=== PATIENT | female | born 1975 | race Caucasian/White ===

== ENCOUNTER → 2017-04-29 | Outpatient (CLI) | payer BC ==
--- NOTE | 2017-04-30 10:46 | ECHOF ---
Referral Reason:R07.1 chest pain, R06.00 Dyspnea MEASUREMENTS -------- HEIGHT: 162.6 cm WEIGHT: 70.3 kg BP: 114/61 RVIDd: 1.9 cm (< 3.3) IVSd: 0.9 cm (0.6 - 1.1) LVIDd: 3.8 cm (3.9 - 5.3) LVPWd: 0.8 cm (0.6 - 1.1) IVSs: 1.1 cm LVIDs: 2.8 cm LVPWs: 1.1 cm LAESV Index (A-L): 13.69 ml/m Ao Diam: 3.2 cm (2.0 - 3.7) AV Cusp: 1.7 cm (1.5 - 2.6) LA Diam: 2.4 cm (2.7 - 3.8) MV EXCURSION: 15.228 mm (> 18.000) MV EF SLOPE: 70 mm/s (70 - 150) EPSS: 0.4 cm MV E Robby: 1.10 m/s MV DecT: 184 ms MV A Robby: 0.74 m/s MV E/A Ratio: 1.49 RAP: 5.00 mmHg RVSP: 11.32 mmHg FINDINGS -------- Sinus rhythm. This was a technically adequate study. Overall left ventricular systolic function is normal with, an EF between 60 - 65 %. The right ventricle is normal in size and function. Normal LA size by volume 22+/-6 ml/m2. The right atrium is normal in size. The aortic valve is trileaflet, and appears structurally normal. No aortic stenosis or regurgitation. The mitral valve is normal. There is trace mitral regurgitation. Trace tricuspid regurgitation present. There is no evidence of pulmonary hypertension. The right ventricular systolic pressure, as measured by Doppler, is 11.32mmHg. The pulmonic valve is normal. The aortic root size is normal. Normal inferior vena cava with normal inspiratory collapse consistent with estimated right atrial pressure of 5 mmHg. The pericardium is normal. There is no pericardial effusion. CONCLUSIONS -------- 1. Sinus rhythm. 2. The aortic root size is normal. 3. There is no pericardial effusion. 4. This was a technically adequate study. 5. Overall left ventricular systolic function is normal with, an EF between 60 - 65 %. 6. Normal LA size by volume 22+/-6 ml/m2. 7. The aortic valve is trileaflet, and appears structurally normal. No aortic stenosis or regurgitation. 8. There is trace mitral regurgitation. 9. Trace tricuspid regurgitation present. 10. There is no evidence of pulmonary hypertension. 11. The right ventricular systolic pressure, as measured by Doppler, is 11.32mmHg. MARKETING OUTREACH COORDINATOR: Gerardo Wood RDCS
== END | disposition home or self-care (01) ==
LOC: CPPFTMAIN 12:09
PROVIDERS: ATTEND Family Medicine
DX: I08.1 Rheumatic disorders of both mitral and tricuspid valves (principal)
CPT/HCPCS: 93306; 94060; 94726; 94729

== ENCOUNTER → 2018-09-19 | Outpatient (CLI) | payer OTHER ==
--- NOTE | 2018-09-22 11:11 | MM ---
Reason for exam: screening (asymptomatic). History: Took hormonal contraceptives for 10 years. MG 3D Screening Mammo W/Cad Bilateral CC and MLO view(s) were taken. The breast tissue is heterogeneously dense. This may lower the sensitivity of mammography. There is a 7 mm oval density in the right breast lower outer anterior middle position, finding is new when compared to the 2013 study. Asymmetric decreased size right to left breast unchanged from outside 2013 mammogram. ASSESSMENT: Incomplete: need additional imaging evaluation, BI-RAD 0 RECOMMENDATION: Ultrasound of the right breast.
== END | disposition home or self-care (01) ==
LOC: RADMAMWWP 15:06
PROVIDERS: ATTEND Family Medicine
DX: Z12.31 Encounter for screening mammogram for malignant neoplasm of breast (principal)
CPT/HCPCS: 77063; 77067

== ENCOUNTER → 2018-10-03 | Outpatient (CLI) | payer OTHER ==
--- NOTE | 2018-10-04 15:41 | USB ---
Reason for exam: additional evaluation requested from abnormal screening. History: Took hormonal contraceptives for 10 years. Physical Findings: Nurse Summary: palpable right breast at 2 o'clock. US Breast Workup Limited RT Right limited breast ultrasound including focal area of concern, retroareolar and axilla demonstrates a 8 x 5 x 1.3 mm irregular hypoechoic lesion at 4 o'clock a biopsy is recommended, a 4 x 3 x 6 mm oval hypoechoic lesion at 8 o'clock possible mammographic correlated and a 6 month follow up is recommended, and at the 2 o'clock positions is a 9 x 5 x 8 mm hypoechoic lesion that a biopsy is also recommended. These results were verbally communicated with the patient and result sheet given to the patient on 10/03/18. ASSESSMENT: Suspicious, BI-RAD 4 RECOMMENDATION: Ultrasound core biopsy of the right breast ([address] sites). [address] Campbell with mammographic findings and has scheduled an appointment for the patient for 10/25/18 at 2:[address] Campbell for the results of the biopsy. The ultrasound core biopsy is scheduled for 10/19/18 at 12:20 pm. PRELIMINARY REPORT CALLED AND FAXED TO DR. Campbell ON 10/03/18. [facility]
== END ==
LOC: RADUSWWP 08:08
PROVIDERS: ATTEND Family Medicine
DX: R92.8 Other abnormal and inconclusive findings on diagnostic imaging of breast (principal)

== ENCOUNTER → 2018-10-19 | Day surgery (SDC) | payer OTHER ==
[2018-10-19 11:37] VITALS: RESP 16; BMI 27.4
--- NOTE | 2018-10-19 13:07 | USB ---
EXAMINATION TYPE: US biopsy breast VAD RT, US biopsy breast add'l VAD RT, MG diagnostic mammo RT wo CAD DATE OF EXAM: 10/19/2018 CLINICAL HISTORY: R92.8 ABN mamogram. TECHNIQUE: Ultrasound guided core biopsy of right breast 2:00 and 4:00 position. COMPARISON: NONE FINDINGS: The procedure of ultrasound guided core biopsy was explained to the patient. Benefits, alternatives, and risks were discussed. An informed consent was then obtained. The patient was placed in supine positioning for imaging and for the procedure. The overlying skin was prepped and draped in usual sterile fashion. Lidocaine buffered with bicarbonate was used as anesthetic into the skin and subcutaneous tissue up to areas of concern in the right breast 2:00 and 4:00 position. Under ultrasound guidance, a 12-gauge vacuum assisted biopsy gun device was used to obtain 3 core samples from the 2:00 position and 4 core samples from the 4:00 position.. Following this, a biopsy clips were deployed in lesions . Postprocedural mammograms demonstrate appropriate placement. The patient tolerated the procedure well without any immediate complication. The patient was kept in the radiology department for short stay after the procedure and then discharged home in stable condition. IMPRESSION: Successful, uncomplicated ultrasound guided core biopsy of area of concern in the right breast 2:00 and 4:00 position. , full pathology results to follow. Pathology Results: Benign A. RIGHT BREAST, TWO O'CLOCK, ULTRASOUND GUIDED CORE BIOPSY: Fibroadenoma. B. RIGHT BREAST, FOUR O'CLOCK, ULTRASOUND GUIDED CORE BIOPSY: Fibrocystic changes including cysts, fibrosis and columnar cell change. Recommendation Follow up mammogram and ultrasound of the right breast in 6 months. (attention 5 o'clock zone A) [place]
[2018-10-19 13:24] VITALS: BP 104/71; PULSE 79; TEMP 98.1
== END ==
LOC: RADUSWWP 11:21
PROVIDERS: ATTEND Family Medicine
DX: D24.1 Benign neoplasm of right breast (principal); N60.31 Fibrosclerosis of right breast
CPT/HCPCS: 88305; 77065; 19083; 19084; A4648; J2001

== ENCOUNTER → 2019-04-19 | Outpatient (CLI) | payer OTHER ==
--- NOTE | 2019-04-19 13:17 | MM ---
Reason for exam: follow-up at short interval from prior study. Last mammogram was performed 6 months ago. History: Benign US biopsy breast VAD RT of the right breast, October 19, 2018. Benign US biopsy breast add'l VAD RT of the right breast, October 19, 2018. Took hormonal contraceptives for 10 years. Physical Findings: Nurse did not find any significant physical abnormalities on exam. MG 3D Diag Mammo W/Cad RT CC and MLO view(s) were taken of the right breast. Prior study comparison: October 19, 2018, right breast MG diagnostic mammo RT wo CAD. September 19, 2018, bilateral MG 3d screening mammo w/cad. The breast tissue is extremely dense which could obscure a lesion on mammography. No suspicious abnormality. Two right biopsy markers are noted. These results were verbally communicated with the patient and result sheet given to the patient on 04/19/19. ASSESSMENT: Incomplete: need additional imaging evaluation, BI-RAD 0 RECOMMENDATION: Ultrasound of the right breast. (as recommended on rad/path correlation after biopsy)
--- NOTE | 2019-04-19 13:19 | USB ---
Reason for exam: follow-up at short interval from prior study. History: Benign US biopsy breast VAD RT of the right breast, October 19, 2018. Benign US biopsy breast add'l VAD RT of the right breast, October 19, 2018. Took hormonal contraceptives for 10 years. US Breast Limited RT Right limited breast ultrasound including focal area of concern, retroareolar and axilla demonstrates a 7 x 3 x 7mm oval, mixed, hypoechoic, new lesion at 9 o'clock and a 5 x 3 x 5mm oval, mixed, hypoechoic lesion at 8 o'clock previously labeled 8 o'clock, no interval growth. These both questionably have some cystic characteristics and may be complicated cysts. These results were verbally communicated with the patient and result sheet given to the patient on 04/19/19. ASSESSMENT: Probably benign, BI-RAD 3 RECOMMENDATION: Follow-up diagnostic mammogram of both breasts in 6 months. Ultrasound of the right breast in 6 months. (inferior breast)
== END ==
LOC: RADMAMWWP 11:00
PROVIDERS: ATTEND Family Medicine
DX: N63.0 Unspecified lump in unspecified breast (principal)
CPT/HCPCS: 77061; 77065

== ENCOUNTER → 2019-10-18 | Outpatient (CLI) | payer OTHER ==
--- NOTE | 2019-10-18 12:10 | MM ---
Reason for exam: additional evaluation requested from prior study. Last mammogram was performed 6 months ago. History: Benign US biopsy breast VAD RT of the right breast, October 19, 2018. Benign US biopsy breast add'l VAD RT of the right breast, October 19, 2018. Took hormonal contraceptives for 10 years. Physical Findings: Nurse did not find any significant physical abnormalities on exam. MG 3D Diag Mammo W/Cad SUNSHINE Bilateral CC and MLO view(s) were taken. Prior study comparison: April 19, 2019, right breast MG 3d diag mammo w/cad RT. October 19, 2018, right breast MG diagnostic mammo RT wo CAD. The breast tissue is heterogeneously dense. This may lower the sensitivity of mammography. No suspicious abnormality. Two right biopsy markers noted. These results were verbally communicated with the patient and result sheet given to the patient on 10/18/19. ASSESSMENT: Suspicious, BI-RAD 4 RECOMMENDATION: Ultrasound core biopsy of the right breast. Called Dr. Campbell's office with mammographic finding. Biopsy scheduled for 11/20/19 at 12:20. PRELIMINARY REPORT CALLED AND FAXED TO DR. CAMPBELL ON 10/18/19.
--- NOTE | 2019-10-18 12:12 | USB ---
Reason for exam: follow-up at short interval from prior study. History: Benign US biopsy breast VAD RT of the right breast, October 19, 2018. Benign US biopsy breast add'l VAD RT of the right breast, October 19, 2018. Took hormonal contraceptives for 10 years. US Breast Limited RT Right limited breast ultrasound including focal area of concern, retroareolar and axilla demonstrates a 7 x 7 x 7mm solid lesion at 2 o'clock on pre-biopsy images this is concordant with fibroadenoma, a 5 x 6 x 8mm solid lesion at 4 o'clock, extension in antiradial 1.6cm, re-biopsy recommended, a 5 x 3 x 5mm hypoechoic lesion at 7 o'clock, prior 7 x 5mm and a 5 x 3 x 6mm oval, cystic lesion at 7 o'clock. These results were verbally communicated with the patient and result sheet given to the patient on 10/18/19. ASSESSMENT: Suspicious, BI-RAD 4 RECOMMENDATION: Ultrasound core biopsy of the right breast. (4 o'clock) Called Dr. Campbell's office with mammographic finding. Biopsy scheduled for 11/20/19 at 12:20. PRELIMINARY REPORT CALLED AND FAXED TO DR. CAMPBELL ON 10/18/19.
== END | disposition home or self-care (01) ==
LOC: RADMAMWWP 09:42
PROVIDERS: ATTEND Family Medicine
DX: R92.8 Other abnormal and inconclusive findings on diagnostic imaging of breast (principal)
CPT/HCPCS: 77062; 77066

== ENCOUNTER → 2019-11-20 | Day surgery (SDC) | payer OTHER ==
[2019-11-20 11:35] VITALS: BP 117/78; PULSE 77; RESP 16; TEMP 98.2
--- NOTE | 2019-11-20 13:54 | USB ---
EXAMINATION TYPE: US biopsy breast VAD RT DATE OF EXAM: 11/20/2019 CLINICAL HISTORY: R92.8 Abn mammo. TECHNIQUE: Ultrasound guided core biopsy of right breast. COMPARISON: Right breast ultrasound dated 10/18/2019 and 04/19/2019 FINDINGS: The procedure of ultrasound guided core biopsy was explained to the patient. Benefits, alternatives, and risks were discussed. An informed consent was then obtained. Preprocedural timeout was performed. The patient was placed in supine positioning for imaging and for the procedure. The overlying skin was prepped and draped in usual sterile fashion. Lidocaine buffered with bicarbonate was used as anesthetic into the skin and subcutaneous tissue up to irregular mass at the 4:00 position in the right breast measuring 5 x 6 x 8 mm. Under ultrasound guidance, a 12-gauge vacuum assisted biopsy gun device was used to obtain 6 core samples. Following this, a ribbon-shaped biopsy marker was left in the irregular mass. The biopsy marker was well seen on ultrasound and no postprocedure mammogram was obtained. The patient tolerated the procedure well without any immediate complication. The patient was kept in the radiology department for short stay after the procedure and then discharged home in stable condition. IMPRESSION: Successful, uncomplicated ultrasound guided core biopsy of an irregular 8 mm mass at the 4:00 position in the right breast (prior biopsy of fibrocystic change), full pathology results to follow. Pathology Results: Benign RIGHT BREAST, 4:00, ULTRASOUND GUIDED CORE BIOPSY: Fibroadenoma/fibroadenomatoid hyperplasia. Recommendation Follow up ultrasound of the right breast in 6 months. Prior biopsy of fibrosis and fibrocystic change, more oval component is concordant with a fibroadenoma and irregular component with fibrosis. JONOD
== END ==
LOC: RADUSWWP 11:07
PROVIDERS: ATTEND Family Medicine
DX: D24.1 Benign neoplasm of right breast (principal)
CPT/HCPCS: 88305; 19083; A4648; J2001

== ENCOUNTER → 2020-05-03 | Outpatient (CLI) | payer OTHER ==
--- NOTE | 2020-05-03 12:45 | USB ---
Reason for exam: follow-up at short interval from prior study. History: Benign US biopsy breast VAD RT of the right breast, November 20, 2019. Benign US biopsy breast VAD RT of the right breast, October 19, 2018. Benign US biopsy breast add'l VAD RT of the right breast, October 19, 2018. Took hormonal contraceptives for 10 years. Physical Findings: Nurse did not find any significant physical abnormalities on exam. US Breast Limited RT Right limited breast ultrasound including focal area of concern, retroareolar and axilla demonstrates a 8 x 4 x 6mm oval, irregular, solid, hypoechoic lesion at 4 o'clock, known benign biopsy. These results were verbally communicated with the patient and result sheet given to the patient on 05/03/20. ASSESSMENT: Benign, BI-RAD 2 RECOMMENDATION: Routine screening mammogram of both breasts in 6 months.
== END | disposition home or self-care (01) ==
LOC: RADUSWWP 10:18
PROVIDERS: ATTEND Family Medicine
DX: Z12.39 Encounter for other screening for malignant neoplasm of breast (principal)

== ENCOUNTER → 2020-11-01 | Outpatient (CLI) | payer OTHER ==
--- NOTE | 2020-11-04 14:59 | MM ---
Reason for exam: screening (asymptomatic). Last mammogram was performed 1 year ago. History: Benign US biopsy breast VAD RT of the right breast, November 20, 2019. Benign US biopsy breast VAD RT of the right breast, October 19, 2018. Benign US biopsy breast add'l VAD RT of the right breast, October 19, 2018. Took hormonal contraceptives for 10 years. Physical Findings: A clinical breast exam by your physician is recommended on an annual basis and results should be correlated with mammographic findings. MG 3D Screening Mammo W/Cad Bilateral CC and MLO view(s) were taken. Prior study comparison: October 18, 2019, bilateral MG 3d diag mammo w/cad SUNSHINE. September 19, 2018, bilateral MG 3d screening mammo w/cad. The breast tissue is heterogeneously dense. This may lower the sensitivity of mammography. Previous mammotome biopsy in the right breast. No significant changes when compared with prior studies. ASSESSMENT: Benign, BI-RAD 2 RECOMMENDATION: Routine screening mammogram of both breasts in 1 year.
== END | disposition home or self-care (01) ==
LOC: RADMAMWWP 14:45
PROVIDERS: ATTEND Family Medicine
DX: Z12.31 Encounter for screening mammogram for malignant neoplasm of breast (principal)
CPT/HCPCS: 77063; 77067

== ENCOUNTER → 2021-11-20 | Outpatient (CLI) | payer OTHER ==
--- NOTE | 2021-11-21 11:51 | MM ---
Reason for exam: screening (asymptomatic). Last mammogram was performed 1 year and 1 month ago. History: Benign US biopsy breast VAD RT of the right breast, November 20, 2019. Benign US biopsy breast VAD RT of the right breast, October 19, 2018. Benign US biopsy breast add'l VAD RT of the right breast, October 19, 2018. Took hormonal contraceptives for 10 years. Physical Findings: A clinical breast exam by your physician is recommended on an annual basis and results should be correlated with mammographic findings. MG 3D Screening Mammo W/Cad Bilateral CC and MLO view(s) were taken. XCCL view(s) were taken of the right breast. Prior study comparison: November 01, 2020, bilateral MG 3d screening mammo w/cad. October 18, 2019, bilateral MG 3d diag mammo w/cad SUNSHINE. The breast tissue is heterogeneously dense. This may lower the sensitivity of mammography. There is no discrete abnormality. No significant changes when compared with prior studies. ASSESSMENT: Negative, BI-RAD 1 RECOMMENDATION: Routine screening mammogram of both breasts in 1 year.
== END | disposition home or self-care (01) ==
LOC: RADMAMWWP 16:23
PROVIDERS: ATTEND Family Medicine
DX: Z12.31 Encounter for screening mammogram for malignant neoplasm of breast (principal)
CPT/HCPCS: 77063; 77067

== ENCOUNTER → 2022-11-24 | Outpatient (CLI) | payer BC ==
--- NOTE | 2022-11-25 08:52 | MM ---
Reason for Exam: Screening (asymptomatic). Last screening mammogram was performed 12 month(s) ago. Patient History: Menarche at age 14. First Full-Term at age 28. Patient used Hormonal Contraceptives for 10 years. 11/20/2019, Benign Core Biopsy on the right side. 10/19/2018, Benign Core Biopsy on the right side. 10/19/2018, Benign Core Biopsy on the right side. Risk Values: Tamara 5 year model risk: 1.8%. NCI Lifetime model risk: 14.0%. Prior Study Comparison: 10/18/2019 Bilateral Diagnostic Mammogram, [facility]. 11/01/2020 Bilateral Screening Mammogram, [facility]. 11/20/2021 Bilateral Screening Mammogram, [facility]. Tissue Density: The breast tissue is heterogeneously dense. This may lower the sensitivity of mammography. Analyzed By CAD. Overall Assessment: Benign, BI-RAD 2 Management: Screening Mammogram of both breasts in 1 year. Electronically signed and approved by: Be Aranda M.D.
== END | disposition home or self-care (01) ==
LOC: RADMAMWWP 12:02
PROVIDERS: ATTEND Family Medicine
DX: Z12.31 Encounter for screening mammogram for malignant neoplasm of breast (principal)
CPT/HCPCS: 77063; 77067

== ENCOUNTER → 2023-11-26 | Outpatient (CLI) | payer BC ==
--- NOTE | 2023-11-29 12:22 | MM ---
Reason for Exam: Screening (asymptomatic). Last screening mammogram was performed 12 month(s) ago. Patient History: Menarche at age 14. First Full-Term at age 28. Patient used Hormonal Contraceptives for 10 years. 11/20/2019, Benign Core Biopsy on the right side. 10/19/2018, Benign Core Biopsy on the right side. 10/19/2018, Benign Core Biopsy on the right side. Last menstrual period: 11/06/2023 Risk Values: Tamara 5 year model risk: 1.6%. NCI Lifetime model risk: 13.6%. Prior Study Comparison: 11/01/2020 Bilateral Screening Mammogram, [facility]. 11/20/2021 Bilateral Screening Mammogram, [facility]. 11/24/2022 Bilateral MG 3D screening mammo w/cad, [facility]. Tissue Density: The breasts are heterogeneously dense, which may obscure small masses. Findings: Analyzed By CAD. Right breast biopsy clips. There is no suspicious group of microcalcifications or new suspicious mass. Overall Assessment: Benign, BI-RAD 2 Management: Screening Mammogram of both breasts in [address] [facility] will attempt to contact patient to return for supplemental views and ultrasound if indicated. Patient should continue monthly self-breast exams. A clinical breast exam by your physician is recommended on an annual basis. This exam should not preclude additional follow-up of suspicious palpable abnormalities. Note on Tamara scores and lifetime risk: 1. A Tamara score greater than 3% is considered moderate risk. If this is the case, consider specialist referral to assess eligibility for a risk reducing agent. 2. If overall lifetime risk for the development of breast cancer is 20% or higher, the patient may qualify for future screening with alternating mammogram and breast MRI. Electronically signed and approved by: Feliberto Chawla DO
== END | disposition home or self-care (01) ==
LOC: RADMAMWWP 10:53
PROVIDERS: ATTEND Family Medicine
DX: Z12.31 Encounter for screening mammogram for malignant neoplasm of breast (principal)
CPT/HCPCS: 77063; 77067

== ENCOUNTER → 2025-01-11 | Outpatient (CLI) | payer BC ==
--- NOTE | 2025-01-11 15:31 | MM ---
Reason for Exam: Screening (asymptomatic). Last mammogram was performed 1 year(s) and 2 month(s) ago. Patient History: Menarche at age 14. First Full-Term at age 28. Patient used Hormonal Contraceptives for 10 years. 11/20/2019, Benign Core Biopsy on the right side. 10/19/2018, Benign Core Biopsy on the right side. 10/19/2018, Benign Core Biopsy on the right side. Risk Values: Tamara 5 year model risk: 1.5%. NCI Lifetime model risk: 13.3%. Prior Study Comparison: 11/20/2021 Bilateral Screening Mammogram, [facility]. 11/24/2022 Bilateral MG 3D screening mammo w/cad, [facility]. 11/26/2023 Bilateral MG 3D screening mammo w/cad, [facility]. Tissue Density: The breasts are heterogeneously dense, which may obscure small masses. Findings: Analyzed By CAD. Surgical clips in the right breast are are redemonstrated. Stable 13 mm circumscribed mass in the posterior aspect left breast. Benign appearing bilateral axillary lymph nodes are redemonstrated. There is no suspicious group of microcalcifications or new suspicious mass in either breast. Overall Assessment: Benign, BI-RAD 2 Management: Screening Mammogram of both breasts in 1 year. . Patient should continue monthly self-breast exams. A clinical breast exam by your physician is recommended on an annual basis. This exam should not preclude additional follow-up of suspicious palpable abnormalities. Note on Tamara scores and lifetime risk: 1. A Tamara score greater than 3% is considered moderate risk. If this is the case, consider specialist referral to assess eligibility for a risk reducing agent. 2. If overall lifetime risk for the development of breast cancer is 20% or higher, the patient may qualify for future screening with alternating mammogram and breast MRI. [facility], , 01/11/2025 3:29 PM. Electronically signed and approved by: Be Aranda M.D.
== END | disposition home or self-care (01) ==
LOC: RADMAMWWP 15:06
PROVIDERS: ATTEND Family Medicine
DX: Z12.31 Encounter for screening mammogram for malignant neoplasm of breast (principal); R92.333 Mammographic heterogeneous density, bilateral breasts; Z92.0 Personal history of contraception
CPT/HCPCS: 77063; 77067